=== PATIENT | male | born 1995 | race Caucasian/White ===

== ENCOUNTER 2021-11-20 09:49 | Emergency (ER) | payer SELFPAY ==
[~2021-11-20] VITALS: Ht 175.3 cm; Wt 116.6 kg
[2021-11-20 09:55] VITALS: BP 162/87
--- NOTE | 2021-11-20 10:02 | NUR ---
PT AMBULATED TO ER BED 4 WITH A STEADY GAIT.
[2021-11-20] MEDS ORDERED: LIDOCAINE MPF 1% 10 MG/ML VIAL INJ ONE (10:25)
--- NOTE | 2021-11-20 10:34 | NUR ---
I&D SET UP AT BED SIDE ERMD NOTIFIED.
[2021-11-20] MEDS ORDERED: IBUP-2213 PO (10:47)
[2021-11-20] MEDS ORDERED: ACET-8386 PO (10:47)
[2021-11-20] MEDS ORDERED: CEPH500C16 PO (10:47)
--- NOTE | 2021-11-20 11:00 | NUR ---
Patient discharged with v/s stable. Written and verbal after care instructions given and explained. Patient alert, oriented and verbalized understanding of instructions. Ambulatory with steady gait. All questions addressed prior to discharge. ID band removed. Patient advised to follow up with PMD. Rx of KEFLEX, HYDROCODON AND IBUPROFEN given. Patient educated on indication of medication including possible reaction and side effects. Opportunity to ask questions provided and answered.
[2021-11-20 11:11] VITALS: BP 162/87
== END 2021-11-20 11:11 | disposition home or self-care (01) ==
LOC: MED 09:49
DX: L05.01 Pilonidal cyst with abscess (principal)
CPT/HCPCS: 10080; 99283; J2001

== ENCOUNTER 2021-11-22 13:37 | Emergency (ER) | payer SELFPAY ==
[~2021-11-22] VITALS: Ht 175.3 cm; Wt 116.1 kg
[~2021-11-22 13:37] MED LIST: ACET-8386 PO; CEPH500C16 PO; IBUP-2213 PO
[2021-11-22 13:50] VITALS: BP 157/91
--- NOTE | 2021-11-22 14:10 | NUR ---
25/M BIB SELF FOR RECHECK FOR PILONIDAL CYST HE HAD DRAINED HERE TWO DAYS AGO, STATES HE WAS TOLD TO RETURN TODAY FOR RECHECK. REPORTS PAIN HAS IMPROVED SINCE LAST VISIT, DENIES FEVERS, CHILLS, DENIES SIGNS OF INFECTION.
--- NOTE | 2021-11-22 14:15 | NUR ---
DR. ODELL EVALUATING PATIENT AT BEDSIDE.
[2021-11-22 14:38] VITALS: BP 157/91
--- NOTE | 2021-11-22 14:38 | NUR ---
Patient discharged with v/s stable. Written and verbal after care instructions ABOUT PILONIDAL CYST AND PILONIDAL CYST DRAINAGE AFTER CARE given and explained. Patient verbalized understanding. Ambulatory with steady gait. All questions addressed prior to discharge. Advised to follow up with PMD.
--- NOTE | 2021-11-22 14:39 | NUR ---
The patient's care was reviewed and supervised by Alise Gonzales RN.
== END 2021-11-22 14:38 | disposition home or self-care (01) ==
LOC: MED 13:37
DX: L05.91 Pilonidal cyst without abscess (principal)
CPT/HCPCS: 99281